=== PATIENT | female | born 1940 ===

== ENCOUNTER 2018-06-18 12:45 | Outpatient (CLI) | payer OTHER | END 2018-06-18 12:48 | disposition home or self-care (01) | LOC: SONOGRAMA 12:45 | DX: C50.212 Malignant neoplasm of upper-inner quadrant of left female breast (principal); N63.21 Unspecified lump in the left breast, upper outer quadrant; N60.11 Diffuse cystic mastopathy of right breast; N60.12 Diffuse cystic mastopathy of left breast ==

== ENCOUNTER → 2018-09-03 | Day surgery (SDC) | payer OTHER ==
[~2018-09-03] MED LIST: AMILORIDE HCL5 MG PO; ASA81 MG PO; ATORVASTATIN CA40 MG PO; GABAPENTIN400 MG PO; HUMALOG MI100 UNIT/2; ISOSORBIDE MONO60 MG PO; LEVO-T25 MCG PO; LOSARTAN-HCTZ1 EAC1 PO; PLAVIX75 MG PO; TOPROL XL50 M1 PO
== END | disposition home or self-care (01) ==
LOC: ADM 08-31 08:00 → CIR.AMB 08-31 08:00
DX: D05.12 Intraductal carcinoma in situ of left breast (principal)